=== PATIENT | female | born 1975 | race Caucasian/White ===

== ENCOUNTER → 2016-09-14 | Outpatient (CLI) | payer OTHER | LOC: KOH-I 13:00 | DX: J32.0 Chronic maxillary sinusitis (principal); J32.1 Chronic frontal sinusitis; J32.3 Chronic sphenoidal sinusitis; J30.1 Allergic rhinitis due to pollen | CPT/HCPCS: 70486 ==

== ENCOUNTER → 2020-08-09 | Outpatient (CLI) | payer BC | LOC: KOH-I 13:46 | DX: M79.662 Pain in left lower leg (principal) | CPT/HCPCS: 36415; 80053; 82550; 85025; 85379; 93971 ==

== ENCOUNTER → 2020-08-09 | Outpatient (CLI) | payer BC ==
[2020-08-09 15:00] LABS: HEMOGLOBIN 13.3 gm/dl (12.3-15.3); RED BLOOD COUNT 4.67 M/UL (4.00-5.10); WHITE BLOOD COUNT 12.9 K/UL (4.5-11.0)
[2020-08-09 15:26] LABS: BUN/CREATININE RATIO 14 (0-10)
== END ==
LOC: LAB 14:30
PROVIDERS: Nurse Practitioner
DX: M79.662 Pain in left lower leg (principal)
CPT/HCPCS: 36415; 80053; 82550; 85025; 85379

== ENCOUNTER → 2021-04-10 | Outpatient (CLI) | payer BC | LOC: KOH-I 15:54 | DX: M79.672 Pain in left foot (principal); S92.401A Displaced unspecified fracture of right great toe, initial encounter for closed fracture | CPT/HCPCS: 73630 ==